=== PATIENT | male | born 1955 | race Asian ===

== ENCOUNTER 2022-09-25 06:00 | Day surgery (SDC) | payer OTHER ==
[2022-09-23 16:26] VITALS: BMI 34.4
[2022-09-25 09:16] VITALS: BP 146/79; PULSE 64; RESP 14; TEMP 97.9
== END 2022-09-25 09:35 | disposition home or self-care (01) ==
LOC: JASU-ENDO 06:00
PROVIDERS: ATTEND Internal Medicine Gastroenterology
PROC: 0DB98ZX Excision of Duodenum, Via Natural or Artificial Opening Endoscopic, Diagnostic (ICD-10-PCS; 2022-09-25)
PROC: 0DB78ZX Excision of Stomach, Pylorus, Via Natural or Artificial Opening Endoscopic, Diagnostic (ICD-10-PCS; 2022-09-25)
PROC: 0DBK8ZX Excision of Ascending Colon, Via Natural or Artificial Opening Endoscopic, Diagnostic (ICD-10-PCS; principal; 2022-09-25 08:00)
DX: Z12.11 Encounter for screening for malignant neoplasm of colon (principal); D12.2 Benign neoplasm of ascending colon; K64.8 Other hemorrhoids; K29.40 Chronic atrophic gastritis without bleeding; K92.1 Melena
CPT/HCPCS: 88305-TC; 88342-TC